=== PATIENT | male | born 1975 | race African-American/Black ===

== ENCOUNTER 2025-04-04 08:32 | Emergency (ER) | payer SELFPAY ==
[~2025-04-04] VITALS: Ht 177.8 cm; Wt 77.0 kg
[2025-04-04] MEDS: LORAZEPAM 2MG/ML UD SYRINGE IM NR (09:15)
[2025-04-04] MEDS: OLANZAPINE 10 MG/VIAL IM ONE (09:15)
[2025-04-04 10:20] VITALS: O2SAT 96
[2025-04-04 10:28] LABS: BASOPHILS % 0.9 % (0.0-2.0); EOSINOPHILS % 1.3 % (0.0-5.0); HEMATOCRIT. 43.3 % (42.0-52.0); HEMOGLOBIN. 14.5 g/dL (14.0-18.0); LYMPHOCYTES % 22.2 % (20.0-50.0); MEAN PLATELET VOLUME 8.2 fl (7.4-10.4); MONOCYTES % 8.0 % (2.0-8.0); NEUTROPHILS % 67.6 % (40.0-76.0); PLATELET 241 x1000/uL (130-400); RED BLOOD CELL COUNT 4.68 mill/uL (4.7-6.1); RED CELL DISTRIBUTION WIDTH 14.3 % (11.6-14.6)
[2025-04-04 10:51] LABS: CREATININE 1.2 mg/dL (0.6-1.3); UREA NITROGEN BLOOD 16 mg/dL (9-23)
[2025-04-04 10:52] LABS: ETHANOL BLOOD < 10 mg/dL (<10)
[2025-04-04 16:43] LABS: *AMPHETAMINES SCREEN URINE NEGATIVE (NEGATIVE); *BARBITURATES SCREEN URINE NEGATIVE (NEGATIVE); *BENZODIAZEPINES SCREEN URINE NEGATIVE (NEGATIVE); *COCAINE SCREEN URINE NEGATIVE (NEGATIVE)
[2025-04-04 16:44] LABS: CANNABINOID URINE SCREEN NEGATIVE (NEGATIVE); ECSTASY MDMA SCREEN URINE NEGATIVE (NEGATIVE); METHADONE URINE SCREEN NEGATIVE (NEGATIVE); OPIATES URINE SCREEN NEGATIVE (NEGATIVE); PHENCYCLIDINE URINE SCREEN NEGATIVE (NEGATIVE)
[2025-04-04] MEDS: DIPHENHYDRAMINE 50MG/ML VIAL IM ONE (20:58)
[2025-04-04] MEDS: ZIPRASIDONE MESYLATE 20MG/VIAL IM ONE (20:58)
[2025-04-04] MEDS: OLANZAPINE 5MG TABLET ODT PO SCH (21:00)
[2025-04-04] MEDS: LORAZEPAM 2MG/ML UD SYRINGE IM SCH (21:50)
[2025-04-05 20:26] VITALS: BP 126/81; PULSE 62; RESP 18; TEMP 36.9; O2SAT 98
== END 2025-04-05 20:51 ==
LOC: ER 08:32
DX: R45.851 Suicidal ideations (principal); R45.850 Homicidal ideations; F23 Brief psychotic disorder; F60.0 Paranoid personality disorder; Z79.899 Other long term (current) drug therapy; Z20.822 Contact with and (suspected) exposure to COVID-19
CPT/HCPCS: 80305; 80048; 80307; 80329; 80320; 85025; 36415; 93005; 96372; 99291; 87426; J3490; J1200; J2060; J3486; Z7610 ×2; A4606; G0480